=== PATIENT | female | born 1990 | race Caucasian/White ===

== ENCOUNTER 2018-01-17 10:47 | Outpatient (REF) | payer OTHER, SELFPAY ==
--- NOTE | 2018-01-17 10:30 | PAPFT_PTH ---
PATIENT: ALEX KAPLAN LOC: [facility] U#:[id number] AGE/SX: 27/F ROOM: RE01/17/[address]: ZACH Mccarthy : 1990 BED: DIS: 01/17/2018 SPEC #: [id number] RECD: 01/17/18 12:45 STATUS: JACQUELINE REQ #: [id number] ARMANI: 01/17/18 10:[address]: Hiral Chavira DEPT: [facility] Cytology RECD BY: Meghan Palumbo Tissues: 1 - CX/ENDOCX FOR PAP SMEARS Procedures: PAP THIN PREP/[facility] Screening Comments: [id number]
== END 2018-01-17 11:07 ==
LOC: LBN 10:47
PROVIDERS: Visit Provider Nurse Practitioner Family
DX: Z12.4 Encounter for screening for malignant neoplasm of cervix (principal)
CPT/HCPCS: 88142